=== PATIENT | male | born 1965 | race Caucasian/White ===

== ENCOUNTER 2021-12-15 11:53 | Day surgery (SDC) | payer OTHER, SELFPAY ==
[2021-12-10 09:39] VITALS: BMI 32.3
[2021-12-15 12:17] VITALS: BP 142/98; PULSE 101; RESP 16; TEMP 37.3; O2SAT 96; BMI 29.6
--- NOTE | 2021-12-15 12:21 | P.CONAN_ITS ---
[facility] Past Medical History Medical History Ulcerative pancolitis Surgical History Surgical History H/O colonoscopy History of hydrocelectomy Hx of appendectomy Hx of hernia repair History of Problems with Anesthesia: No Social History Social History Patient Tobacco Use Status: Never used Tobacco Second Hand Smoke Exposure: Yes Use of substances other than those prescribed or required for medical reasons: No Are you DNR?: No Advance Directives: No Advance Directives Information Provided: Yes Meds Allergies Allergy/AdvReac Type Severity Reaction Status Date / Time lactose AdvReac Unknown Unknown Verified 12/10/21 09:37 Home Medications Medication Instructions Recorded Confirmed Last Taken Type balsalazide 750 mg capsule 3,000 mg PO BID 12/10/21 12/10/21 Unknown History lactobacillus combination no.4 3 3,000 mmu cells PO DAILY 12/10/21 12/10/21 Unknown History billion cell capsule (Probiotic) Exam Exam Date and Time: December 15, 2021 1221 Height,Weight and Vital Signs: Height 5 ft 7.5 in Weight 87.09 kg Last Vital Signs Temp 99.2 F 12/15/21 12:17 Pulse 101 H 12/15/21 12:17 Resp 16 12/15/21 12:17 BP 142/98 H 12/15/21 12:17 Pulse Ox 96 12/15/21 12:17 O2 Del Method 12/15/21 12:17 Airway Mallampati Class: III TM Dist: >3cm Neck ROM: Full Loose/Missing/Broken Teeth: No Heart: RRR Lungs: CTA Assessment and Plan Assessment Anesthesia Assessment: Anesthesia Plan Discussed and Chart Reviewed Final Anesthetic Review History of Problems with Anesthesia: No NPO: Yes ASA Class: II Final Preanesthetic Review: Meds/Allgs Chart Reviewed, Consent Obtained/Reviewed and Anes Risks/Benef Reviewed Patient Risk: Low Procedure Risk: Low Anesthetic Plan Anesthetic Plan: MAC: Disposition: Standard PACU
--- NOTE | 2021-12-15 13:04 | MHC.SHP ---
Pre-Procedural Eval Section A Date of Service: 12/15/21 Section B Chief Complaint: pancolitis Details of Present Illness: see H&P no changes Relevant Family History (Specify if Yes): No Relevant Social History: None Present Medications: see Short Stay Collaborative assessment Medical History: No relevant PMH History of Previous Operations: No relevant previous surgery Allergies: Allergies Allergy/AdvReac Type Severity Reaction Status Date / Time lactose AdvReac Unknown Unknown Verified 12/10/21 09:37 Review of Systems Sugical H&P ROS: Negative: Constitution, Cardiovascular, Respiratory, Neurological, Psychiatric, Hem-Onc, Allergic/Immunologic, Gastrointestinal, Genitourinary, Musculoskeletal, Integumentary, Endocrine and Eyes/Ears/Nose/Throat Exam Surgical H&P Exam: Normal: HEENT, Normal: Heart, Normal: Lungs, Normal: Extremities, Normal: Abdomen, Normal: Skin and Normal: Neurological Plan Diagnosis/Plan: Unchanged I have reviewed the history and physical and performed a pertinent physical examination on my patient. No changes have occurred unless specified.
[2021-12-15 13:48] VITALS: BP 129/84; PULSE 102; RESP 16; TEMP 36.3; O2SAT 94
--- NOTE | 2021-12-15 13:52 | P.BOP_ITS ---
Brief Operative Note Date of Service: 12/15/21 Pre-op diagnosis: uc Post-op diagnosis: same Procedure: colonoscopy Surgeon: Howard Pandey Anesthesia: MAC Was an [employer] used for this Procedure?: No Estimated blood loss (mL): 5 Pathology: other Condition: stable Disposition: PACU
[2021-12-15 14:03] VITALS: BP 137/97; PULSE 88; RESP 17; O2SAT 94
[2021-12-15 14:17] VITALS: BP 110/68; PULSE 84; RESP 18; TEMP 36.4; O2SAT 97
--- NOTE | 2021-12-15 14:23 | OP_ITS ---
SURGEON: Howard Pandey MD INDICATIONS: Ulcerative colitis, surveillance. PREOPERATIVE DIAGNOSIS: POSTOPERATIVE DIAGNOSIS: PROCEDURE PERFORMED: Colonoscopy to the terminal ileum with biopsy on 12/15/21. ESTIMATED BLOOD LOSS: COMPLICATIONS: ANESTHESIA: Monitored anesthesia care. ASSISTANTS: SPECIMENS: DESCRIPTION OF PROCEDURE: History and physical performed. The risks and benefits of the procedure were explained to the patient. Informed consent was obtained. The patient was placed in the left lateral decubitus position. A digital rectal exam was performed and was found to be normal. The Olympus pediatric video colonoscope was introduced into the rectum and advanced to the cecum without difficulty. The cecum was identified by transillumination, palpation, and identification of ileocecal valve. Examination was performed. The scope was removed. He tolerated the procedure well returned to recovery room in stable condition. FINDINGS: The terminal ileum was normal. This was biopsied. The visualized colonic mucosa showed changes of inactive colitis with pseudopolyp formation in the hepatic flexure and transverse colon. The left colon and sigmoid were featureless. There was no active inflammatory change. Two polyps were identified in the right colon and removed with a snare. The first measured approximately 8 mm. The second was a flat polyp measuring approximately 15 x 20 mm. This was piecemeal resected, and the base was cauterized. Close followup will be necessary if this is an adenoma. The quality of the prep was good. Retroflexed examination showed some internal hemorrhoids. IMPRESSION: 1. Ulcerative colitis. 2. Colon polyps. RECOMMENDATION: Follow up the biopsy results. MD CHRISTINE Thacker/BENL / [id number] [facility]
== END 2021-12-15 14:45 | disposition home or self-care (01) ==
PROVIDERS: Visit Provider Internal Medicine Gastroenterology
PROC: 0DJD8ZZ Inspection of Lower Intestinal Tract, Via Natural or Artificial Opening Endoscopic (ICD-10-PCS; CPT 45378; principal; 2021-12-15 13:00)
DX: K51.00 Ulcerative (chronic) pancolitis without complications (principal); K63.5 Polyp of colon; K64.8 Other hemorrhoids; Z79.899 Other long term (current) drug therapy; Z91.011 Allergy to milk products
CPT/HCPCS: 45385; 45380; 88305